=== PATIENT | female | born 1965 | race Caucasian/White ===

== ENCOUNTER 2017-02-20 02:25 | Inpatient (IN) ==
[~2017-02-20 02:25] MED LIST: NARCAN ONE; ZOFRAN ONE
[2017-02-20] MEDS ORDERED: ZOFRAN IV ONE (02:30)
[2017-02-20] MEDS ORDERED: NARCAN IV ONE (02:30)
[2017-02-20 02:48] LABS: MANUAL DIFF NEEDED? NO
[2017-02-20 02:48] LABS: URINE CULTURE PL NEEDED? NO
[2017-02-20 03:02] LABS: UR AMPHETAMINES QUAL NONE DETECTED (NONE DETECT)
[2017-02-20 03:03] LABS: UR BARBITUATES QUAL NONE DETECTED (NONE DETECT); UR BENZODIAZEPIN QUAL PRESUMPTIVE POSITIVE (NONE DETECT); UR CANNABINOIDS QUAL NONE DETECTED (NONE DETECT); UR COCAINE QUAL NONE DETECTED (NONE DETECT); UR MDMA QUAL NONE DETECTED (NONE DETECT); UR METHADONE QUAL NONE DETECTED (NONE DETECT); UR METHAMPHETAMINE QUAL NONE DETECTED (NONE DETECT); UR OPIATES QUAL PRESUMPTIVE POSITIVE (NONE DETECT); UR OXYCODONE QUAL NONE DETECTED (NONE DETECT); UR PCP QUAL NONE DETECTED (NONE DETECT); UR TCA QUAL NONE DETECTED (NONE DETECT)
[2017-02-20 03:05] LABS: BILIRUBIN URINE NEGATIVE (NEGATIVE); BLOOD URINE NEGATIVE (NEGATIVE); CLARITY CLEAR (CLEAR); COLOR YELLOW; GLUCOSE URINE NEGATIVE (NEGATIVE); LEUKOCYTES URINE NEGATIVE (NEGATIVE); NITRITE URINE NEGATIVE (NEGATIVE); PROTEIN URINE TRACE mg/dL (NEGATIVE); URINE EPITHELIAL CELLS <10 /HPF (<10); URINE RBC <10 /HPF (<10); URINE SOURCE CATH; URINE WBC <10 /HPF (<10); UROBILINOGEN URINE NORMAL
[2017-02-20 03:09] LABS: BASO% 0.1 % (0.0-0.8); EOS# 0.01 X1000 (0.0-0.7); EOS% 0.1 % (0.0-10.0); HEMOGLOBIN 12.2 g/dL (12.0-16.0); IMM GRAN# 0.02 X1000 (0.0-0.04); IMM GRAN% 0.2 % (0.0-0.5); LYMPH# 0.99 X1000 (1.2-3.4); LYMPH% 10.6 % (20.5-51.1); MCH 34.5 PG (27-31); MCV 104.5 FL (81-99); MONO# 0.94 X1000 (0.11-0.59); MPV 11.8 FL (7.4-10.4); PLT 200 X1000 (130-400); RBC 3.54 XMIL (4.2-5.4)
[2017-02-20 03:11] LABS: ALBUMIN 4.2 g/dL (3.5-5.0); CALCIUM 8.8 mg/dL (8.8-10.2); POTASSIUM 4.8 mmol/L (3.5-5.1); TOTAL BILIRUBIN 0.5 mg/dL (0.20-1.00); TOTAL PROTEIN 7.5 g/dL (6.3-8.3)
--- NOTE | 2017-02-20 03:18 | EKG Report ---
Test Performed on : 02/20/2017 02:24:34 AM Test Reason : ams Blood Pressure : / mmHG Vent. Rate : 099 BPM Atrial Rate : 099 BPM P-R Int : 136 ms QRS Dur : 086 ms QT Int : 370 ms P-R-T Axes : 027 -03 021 degrees QTc Int : 474 ms Normal sinus rhythm. Inferior infarct , age undetermined Abnormal ECG No previous ECGs available Unconfirmed Result
[2017-02-20] MEDS ORDERED: NS 1,000 ML IV ONE ×2 (03:22→03:27)
[2017-02-20] MEDS ORDERED: ZOFRAN IV PRN ×2 (03:27→07:13)
--- NOTE | 2017-02-20 03:27 | PROVIDER DOCUMENTATION ---
This chart was entered by Celeste Durham Scribe, acting as scribe for Clyde Mayo MD. HPI-Critical Care - General Stated Complaint: unresponsive Time Seen by Provider: 02/20/17 02:25 Patient arrived via EMS?: Yes Source: EMS Unable to obtain history due to:: altered (unresponsive on arrival) Allergies/Adverse Reactions: Allergies Allergy/AdvReac Type Severity Reaction Status Date / Time No Known Allergies Allergy Verified 12/29/16 22:53 Home Medications: Home Medication List Medication Instructions Recorded Confirmed Last Taken Type NK [No Home Medications] 02/20/17 02/20/17 Unknown History - History of Present Illness-Critical Care Nature of Presenting Problem: 51 Y/O F presents to ED with unresponsive. EMS states that daughter stated that last time was awake was yesterday. Daughter called 911, apparently EMS states that gloria came home to mother like this and that she other people were home with her all day and no one called 911. EMS states severe rhales, and pt broke foot yesterday. Hx of bronchial pneumonia. Pt arrived with vomit down airway on arrival. Initial O2 80 Location of Pain/Injury: reports: generalized Severity in ED: reports: severe Onset/Duration: reports: this morning EMS Initial Findings:: unresponsive EMS Initial HR: 97 EMS Initial BP: 130/115 Pre-hospital Treatment: Initiated oxygen Loss of Consciousness: no loss of consciousness Nitro Today/Relief: no nitro taken today Aspirin Treatment Today: no aspirin today Review of Systems - Adult - REVIEW OF SYSTEMS - ADULT ROS:: unobtainable per condition (unresponsive on arrival) Constitutional: denies: chills, fever Eyes: reports: no symptoms reported Ears, Nose, Mouth & Throat: reports: no symptoms reported Cardiovascular: reports: no symptoms reported Respiratory: reports: no symptoms reported Gastrointestinal: reports: no symptoms reported Genitourinary: reports: no symptoms reported Musculoskeletal: reports: no symptoms reported Integumentary: reports: no symptoms reported Neurological: reports: no symptoms reported Psychiatric: reports: no symptoms reported Endocrine: reports: no symptoms reported Hematologic/Lymphatic: reports: no symptoms reported Allergic/Immunologic: reports: no symptoms reported All Other Systems: Reviewed and Negative Past History - Adult - PAST MEDICAL HISTORY-ADULT Review of Records: reports: Old Records Reviewed, Nursing Assessment Review, Medications Reviewed, Social history reviewed & non-contributory. Cardiovascular: reports: CHF, HTN - IMMUNIZATION STATUS Childhood Immunizations: See Nurse Assessment Flu Vaccine: See Nurse Assessment Physical Exam-General - CONSTITUTIONAL General Appearance: severe distress. negative: appears well, alert - EYES Eyes: other (small pinpoint pupils). negative: PERRL/EOMI - RESPIRATORY Respiratory: other (coarse breathe sounds, open airway). negative: lungs clear , normal breath sounds - SKIN Integumentary: normal color, normal turgor Progress - PLAN OF CARE/RESULTS Progress/Plan/Lab Results: Vital Signs - 8 hr 02/20/17 02:25 02/20/17 02:26 Temperature 99.0 F Pulse Rate 102 H Respiratory Rate 20 Blood Pressure 157/94 O2 Sat by Pulse Oximetry 95 96 Laboratory Results - last 24 hr 02/20/17 02/20/17 02/20/17 02:25 02:25 02:25 WBC 9.37 RBC 3.54 L Hgb 12.2 Hct 37.0 MCV 104.5 H MCH 34.5 H MCHC 33.0 RDW Std Deviation 14.1 Plt Count 200 MPV 11.8 H Immature Gran % (Auto) 0.2 Neut % (Auto) 79.0 H Lymph % (Auto) 10.6 L Ector % (Auto) 10.0 H Eos % (Auto) 0.1 Baso % (Auto) 0.1 Immature Gran # (Auto) 0.02 Neut # (Auto) 7.40 H Lymph # (Auto) 0.99 L Ector # (Auto) 0.94 H Eos # (Auto) 0.01 Baso # (Auto) 0.01 Sodium 143 Potassium 4.8 Chloride 103 Carbon Dioxide 23 L Anion Gap 18 BUN 43 H Creatinine 2.0 H Estimated GFR/1.73 m2 26 BUN/Creatinine Ratio 22 Glucose 110 H Calculated Osmolality 296 Calcium 8.8 Magnesium Total Bilirubin 0.50 AST 30 ALT 17 Alkaline Phosphatase 80 Ammonia 20 Total Protein 7.5 Albumin 4.2 Globulin 3.0 Albumin/Globulin Ratio 1.0 TSH Urine Source Urine Color Urine Clarity Urine pH Ur Specific [place] Urine Protein Urine Ketones Urine Blood Urine Nitrite Urine Bilirubin Urine Urobilinogen Urine Microscopic RBC Urine WBC Urine Microscopic WBC Ur Epithelial Cells Urine Bacteria Urine Glucose Urine Test Salicylates Urine Opiates Screen Ur Oxycodone Screen Urine Methadone Screen Acetaminophen Ur Barbituates Screen Ur Tricyclics Screen Ur Phencyclidine Scrn Ur Amphetamines Screen U Methamphetamines Scrn Urine MDMA Screen U Benzodiazepines Scrn Urine Cocaine Screen U Cannabinoids Screen Plasma/Serum Ethyl Alc 02/20/17 02/20/17 02/20/17 02:25 02:25 02:25 WBC RBC Hgb Hct MCV MCH MCHC RDW Std Deviation Plt Count MPV Immature Gran % (Auto) Neut % (Auto) Lymph % (Auto) Ector % (Auto) Eos % (Auto) Baso % (Auto) Immature Gran # (Auto) Neut # (Auto) Lymph # (Auto) Ector # (Auto) Eos # (Auto) Baso # (Auto) Sodium Potassium Chloride Carbon Dioxide Anion Gap BUN Creatinine Estimated GFR/1.73 m2 BUN/Creatinine Ratio Glucose Calculated Osmolality Calcium Magnesium 2.6 Total Bilirubin AST ALT Alkaline Phosphatase Ammonia Total Protein Albumin Globulin Albumin/Globulin Ratio TSH 0.79 Urine Source Urine Color Urine Clarity Urine pH Ur Specific [place] Urine Protein Urine Ketones Urine Blood Urine Nitrite Urine Bilirubin Urine Urobilinogen Urine Microscopic RBC Urine WBC Urine Microscopic WBC Ur Epithelial Cells Urine Bacteria Urine Glucose Urine Test Salicylates Urine Opiates Screen Ur Oxycodone Screen Urine Methadone Screen Acetaminophen Ur Barbituates Screen Ur Tricyclics Screen Ur Phencyclidine Scrn Ur Amphetamines Screen U Methamphetamines Scrn Urine MDMA Screen U Benzodiazepines Scrn Urine Cocaine Screen U Cannabinoids Screen Plasma/Serum Ethyl Alc 02/20/17 02/20/17 02/20/17 02:25 02:25 02:30 WBC RBC Hgb Hct MCV MCH MCHC RDW Std Deviation Plt Count MPV Immature Gran % (Auto) Neut % (Auto) Lymph % (Auto) Ector % (Auto) Eos % (Auto) Baso % (Auto) Immature Gran # (Auto) Neut # (Auto) Lymph # (Auto) Ector # (Auto) Eos # (Auto) Baso # (Auto) Sodium Potassium Chloride Carbon Dioxide Anion Gap BUN Creatinine Estimated GFR/1.73 m2 BUN/Creatinine Ratio Glucose Calculated Osmolality Calcium Magnesium Total Bilirubin AST ALT Alkaline Phosphatase Ammonia Total Protein Albumin Globulin Albumin/Globulin Ratio TSH Urine Source CATH Urine Color YELLOW Urine Clarity CLEAR Urine pH 5.0 Ur Specific [place] 1.020 Urine Protein TRACE A Urine Ketones NEGATIVE Urine Blood NEGATIVE Urine Nitrite NEGATIVE Urine Bilirubin NEGATIVE Urine Urobilinogen NORMAL Urine Microscopic RBC <10 Urine WBC NEGATIVE Urine Microscopic WBC <10 Ur Epithelial Cells <10 Urine Bacteria 1+ Urine Glucose NEGATIVE Urine Test Salicylates < 3.00 L Urine Opiates Screen Ur Oxycodone Screen Urine Methadone Screen Acetaminophen < 1.2 L Ur Barbituates Screen Ur Tricyclics Screen Ur Phencyclidine Scrn Ur Amphetamines Screen U Methamphetamines Scrn Urine MDMA Screen U Benzodiazepines Scrn Urine Cocaine Screen U Cannabinoids Screen Plasma/Serum Ethyl Alc 02/20/17 02/20/17 02:30 02:30 WBC RBC Hgb Hct MCV MCH MCHC RDW Std Deviation Plt Count MPV Immature Gran % (Auto) Neut % (Auto) Lymph % (Auto) Ector % (Auto) Eos % (Auto) Baso % (Auto) Immature Gran # (Auto) Neut # (Auto) Lymph # (Auto) Ector # (Auto) Eos # (Auto) Baso # (Auto) Sodium Potassium Chloride Carbon Dioxide Anion Gap BUN Creatinine Estimated GFR/1.73 m2 BUN/Creatinine Ratio Glucose Calculated Osmolality Calcium Magnesium Total Bilirubin AST ALT Alkaline Phosphatase Ammonia Total Protein Albumin Globulin Albumin/Globulin Ratio TSH Urine Source Urine Color Urine Clarity Urine pH Ur Specific [place] Urine Protein Urine Ketones Urine Blood Urine Nitrite Urine Bilirubin Urine Urobilinogen Urine Microscopic RBC Urine WBC Urine Microscopic WBC Ur Epithelial Cells Urine Bacteria Urine Glucose Urine Test NEGATIVE Salicylates Urine Opiates Screen PRESUMPTIVE POSITIVE A Ur Oxycodone Screen NONE DETECTED Urine Methadone Screen NONE DETECTED Acetaminophen Ur Barbituates Screen NONE DETECTED Ur Tricyclics Screen NONE DETECTED Ur Phencyclidine Scrn NONE DETECTED Ur Amphetamines Screen NONE DETECTED U Methamphetamines Scrn NONE DETECTED Urine MDMA Screen NONE DETECTED U Benzodiazepines Scrn PRESUMPTIVE POSITIVE A Urine Cocaine Screen NONE DETECTED U Cannabinoids Screen NONE DETECTED Plasma/Serum Ethyl Alc Orders Category Date Time Status CHEST-PORTABLE [RAD] Stat Exams 02/20/17 02:30 Taken HEAD W/O CONTRAST [CT] Stat Exams 02/20/17 02:36 Taken ACETAMINOPHEN [TDM] Stat Lab 02/20/17 02:25 Completed ALCOHOL BLOOD Stat Lab 02/20/17 02:25 Completed AMMONIA [CHEM] Stat Lab 02/20/17 02:25 Completed CBC WITH ELECTRONIC DIFF [HEME] Stat Lab 02/20/17 02:25 Completed CMP [COMPREHENSIVE METABOLIC PANEL] [CHEM] Stat Lab 02/20/17 02:25 Completed MAGNESIUM [CHEM] Stat Lab 02/20/17 02:25 Completed TEST-URINE [PREG] Stat Lab 02/20/17 02:30 Completed SALICYLATES [TDM] Stat Lab 02/20/17 02:25 Completed TSH Stat Lab 02/20/17 02:25 Completed UDS [URINE DRUG SCREEN PL] Stat Lab 02/20/17 02:30 Completed ua [URINALYSIS PL W/POSS RFLX CULT] [URINALYSIS] Stat Lab 02/20/17 02:30 Completed 0.9% Sodium Chloride Inj [Ns] 1,000 ml Med 02/20/17 03:22 Active IV 999 mls/hr Naloxone [Narcan] Med 02/20/17 02:30 Discontinued 2 mg IV NOW ONE Ondansetron [Zofran] Med 02/20/17 02:30 Discontinued 8 mg IV NOW ONE EKG [EKG] Stat Ther 02/20/17 02:32 Draft Pt is not fully alert but does respond to painful stimulation Result Diagrams: 02/20/17 02:25 02/20/17 02:25 - EKG 1 Time of EKG reading by physician:: 02:24 EKG Read and Signed by:: Clyde Mayo EKG Interpretation (*Must complete 3 of following elements*): Normal Rate: 99 Rhythm: NSR Comments: Abnormal ECG, Inferior Infract, age undetermined - XRAY 1 XRAY Study: Chest Impression: Abnormal (cardiomegaly, olr right clavicle fx, ? early RLL infiltrate) - CT/MRI 1 CT Study: Head Impression: Normal Departure - Departure Date of Disposition Decision: 02/20/17 Time of Disposition Decision: 03:26 DIAGNOSIS: Aspiration pneumonitis Opiate overdose Qualifiers: Encounter type: initial encounter Injury intent: undetermined intent Qualified Code(s): T40.604A - Poisoning by unspecified narcotics, undetermined, initial encounter Disposition: ADMITTED INPATIENT 09 Certified Medical Emergency: Emergent Condition: Fair Referrals and Follow-Ups: None,PCP [Primary Care Provider] - - Critical Care Note This patient required my direct & personal management of CC.: No This chart was documented by the indicated scribe, (Celeste Durham Scribe) and accurately reflects the services I performed and decisions made by me, Clyde Mayo MD, as attested by the provider's signature.
--- NOTE | 2017-02-20 06:08 | Diag Imaging Result Doc PS360 ---
EXAM: CHEST-PORTABLE HISTORY: sob TECHNIQUE: AP chest COMPARISON: None. FINDINGS: The lungs are well expanded. Heart is not enlarged. The vessels are not distended. No consolidation. No pleural effusions identified. Old injury to the right clavicle. IMPRESSION: Negative chest. Electronically signed by Sg Vila 02/20/2017 6:05 AM
--- NOTE | 2017-02-20 06:23 | Diag Imaging Result Doc PS360 ---
EXAM: HEAD W/O CONTRAST HISTORY: ams TECHNIQUE: Dose reduction protocol COMPARISON: None. FINDINGS: No parenchymal hemorrhage. No epidural or subdural hematoma. No subarachnoid hemorrhage. No mass identified on this noncontrasted exam. No hydrocephalus. No sinus opacification. IMPRESSION: No hemorrhage. Negative brain CT without contrast. A preliminary report was given at 3:34 AM. Electronically signed by Sg Vila 02/20/2017 6:21 AM
[2017-02-20] MEDS: DUONEB (A & A) INH PRN ×2 (07:59→11:43)
[2017-02-20] MEDS: CLINDAMYCIN 900 MG in NS 50 ML IV SCH ×3 (08:40→23:46)
[2017-02-20] MEDS: ROCEPHIN 1 GM/NS 1 GM/50 ML IVPB IV SCH (08:46)
--- NOTE | 2017-02-20 08:50 | Diag Imaging Result Doc PS360 ---
EXAM: ANKLE COMPLETE RIGHT HISTORY: ? fracture TECHNIQUE: Three views COMPARISON: None. FINDINGS: Metallic clips from an [place] bandage obscure bony and soft tissue detail. On the oblique view there is lucency involving the fibula above the ankle mortise suspicious for nondisplaced fracture. There is also a nondisplaced fracture involving the distal fibula which appears chronic and ununited. The ankle mortise is intact. There is a small calcaneal spur. IMPRESSION: Suspect acute nondisplaced fracture distal fibula above the ankle mortise. Old ununited distal fibular fracture. Electronically signed by Jina Dobbins 02/20/2017 8:48 AM
[2017-02-20] MEDS: DUONEB (A & A) INH SCH ×4 (11:43→22:55)
[2017-02-20] MEDS ORDERED: DUONEB (A & A) INH PRN (12:08)
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
[2017-02-20] MEDS: NORCO-5 PO PRN (18:28)
[2017-02-20] MEDS ORDERED: TYLENOL PO ONE (19:56)
[2017-02-21] MEDS: NORCO-5 PO PRN (01:52)
[2017-02-21] MEDS: DUONEB (A & A) INH SCH ×3 (02:35→12:12)
--- NOTE | 2017-02-21 04:34 | CONSULTATION ---
DATE OF CONSULTATION: 02/20/2017 REASON FOR CONSULTATION: A nondisplaced distal fibular fracture of the right ankle. HISTORY OF PRESENT ILLNESS: This is a 51-year-old female, who presented to the emergency room via EMS after she was found unresponsive by her daughter. She apparently fell early Saturday morning and presented to the [facility] ER where they placed her in a removable boot and told to follow up outpatient with orthopedic. She has been admitted to the hospital now for a likely opiate overdose as well as aspiration pneumonia. We have been asked to see her to follow this right ankle fracture. PAST MEDICAL HISTORY: 1. Depression. 2. Chronic pain. PAST SURGICAL HISTORY: Unable to obtain at present. PRESENT SOCIAL HISTORY: She is a smoker. She does drink alcohol and use illicit drugs. ALLERGIES: No known drug allergies. HOME MEDICATIONS: Refer to list in chart. REVIEW OF SYSTEMS: A 12-point review of systems has been obtained and is negative except as what is mentioned above and in the physical exam. PHYSICAL EXAMINATION: General: This is a 51-year-old female, who is currently lying in the bed in no acute distress. Vital Signs: Temperature 99.7 degrees, pulse 104, blood pressure 132/69, O2 saturation is 99% on a 40% Ventimask. HEENT: Head is normocephalic, atraumatic. Pupils are equal and reactive to light. Neck: Trachea is midline. Cardiovascular: Regular rate and rhythm. Pulmonary: Respirations are even and unlabored. Extremities: Right lower extremity has significant bruising to the lateral aspect of the ankle. She has some edema medially and laterally on the ankle as well as the midfoot. She has tenderness to palpation throughout the ankle and foot. She has a good pedal pulse. She has good sensation to her toes. She denies numbness or tingling. IMAGING: Radiograph of the right ankle shows a nondisplaced fracture of the distal fibula. The joint spacing looks good. The syndesmosis does not appear widened. Dr. Souza personally reviewed and interpreted these images. ASSESSMENT: Nondisplaced distal fibular fracture. PLAN: Ms. Matt elizabeth is currently missing. Apparently the family has it and is unable to get it back up here. For now, I will place her in a posterior splint, as she is having a lot of pain. We will plan to place her in a removable short-leg walking boot. As far as pain medication goes, because of her recent overdose, I will leave the pain medication up to the medical team. We will have Ms Robert follow up in the [facility] as an outpatient whenever she is discharged from the hospital. Dictated by JOSE ROBERTO Pearl for Galdino Souza MD cc: JOSE ROBERTO Pearl MD Gregory S. Cheatham, MD MTDD
[2017-02-21 06:20] LABS: HEMATOCRIT 32.1 % (37.0-47.0); HEMOGLOBIN 10.4 g/dL (12.0-16.0); MCH 33.9 PG (27-31); MCHC 32.4 g/dL (33-37); MCV 104.6 FL (81-99); MPV 11.8 FL (7.4-10.4); RBC 3.07 XMIL (4.2-5.4)
[2017-02-21 06:53] LABS: AGAP 16; ALBUMIN 3.4 g/dL (3.5-5.0); ALKALINE PHOSPHATASE 102 U/L (32-104); BUN 10 mg/dL (8-22); CALCIUM 8.8 mg/dL (8.8-10.2); CHLORIDE 102 mmol/L (98-107); COSMO 276; GOT 25 U/L (10-30); GPT 12 U/L (10-36); POTASSIUM 4.3 mmol/L (3.5-5.1); SODIUM 138 mmol/L (136-145); TCO2 20 mmol/L (25-35); TOTAL PROTEIN 6.4 g/dL (6.3-8.3)
[2017-02-21] MEDS: CLINDAMYCIN 900 MG in NS 50 ML IV SCH (08:05)
[2017-02-21] MEDS: ROCEPHIN 1 GM/NS 1 GM/50 ML IVPB IV SCH (08:05)
[2017-02-21] MEDS ORDERED: LOPRESSOR PO SCH (09:00)
[2017-02-21] MEDS ORDERED: CATAPRES PO SCH (09:00)
[2017-02-21] MEDS ORDERED: LIBRIUM PO SCH ×2 (09:00)
[2017-02-21] MEDS ORDERED: ZANTAC PO SCH (09:00)
[2017-02-21] MEDS ORDERED: NORVASC PO SCH (09:00)
[2017-02-21] MEDS ORDERED: PRINIVIL PO SCH (09:00)
[2017-02-21] MEDS ORDERED: CELEXA PO SCH (09:00)
[2017-02-21] MEDS ORDERED: ASPIRIN EC PO SCH (09:00)
--- NOTE | 2017-02-21 09:01 | PROGRESS NOTE ---
DATE: 02/21/2017 SUBJECTIVE: Patient without new complaints. She is lying in the bed quietly and flat. She is more awake and alert. OBJECTIVE: Vital Signs: On physical, temp 99, pulse 111 respiratory 22, BP 150/78, satting 96% on 2 L. General: Patient is awake. She easily awakened, but she is sleeping most of the time. She does have pain in her left ankle from her previous fracture. HEENT: Normocephalic, atraumatic. Neck: Supple. CV: Regular rate. Chest: Relatively clear. Abdomen: Soft. Extremities: Moves all extremities. Neurologic: No changes. ASSESSMENT: 1. Opiate overdose. Patient continues to improve. 2. Aspiration pneumonia. We will continue antibiotics. 3. Supraventricular tachycardia. 4. Chronic pain. 5. Known history of alcoholism, although no current signs of withdrawal. We will continue on Librium. 6. Right distal fibular nondisplaced fracture. Will continue bracing. 7. Chronic kidney disease. PLAN: We will continue to follow patient. Will keep in the ICU a little while longer. We will continue current orders. TIME SPENT: 34 minutes was spent in total care. cc: Jimmy Weathers MD
[2017-02-21 15:23] VITALS: BP 135/83
--- NOTE | 2017-02-22 20:11 | DISCHARGE SUMMARY ---
ADMISSION DATE: 02/20/2017 DISCHARGE DATE: 02/21/2017 PATIENT LEFT AMA. DIAGNOSES: 1. Opiate overdose. 2. Aspiration pneumonia. 3. Supraventricular tachycardia. 4. Chronic pain. 5. Known history of alcoholism. 6. Right distal fibular nondisplaced fracture. 7. Chronic kidney disease. DIAGNOSTICS: 02/20/2017 CT of the head: No hemorrhage, negative brain CT without contrast. 02/20/2017 right ankle x-ray: Suspect acute nondisplaced fracture at the distal fibula above the ankle mortise, old ununited distal fibular fracture. CONSULTATIONS: Galdino Souza MD. MICROBIOLOGY: Sputum culture revealed no growth. HOSPITAL COURSE: Ms. Robert presented to the emergency room via EMS after being found lying in bed unresponsive by her daughter. Reportedly she had been to the emergency room within 36 hours prior to this event, diagnosed with a right ankle fracture and given pain medication. When the daughter found her, she had only 2 pills left in the bottle. We are unsure of how many pills were actually in the bottle. On arrival to the emergency room she was unresponsive and vomitus was noted in her airway per the ER chart but she did have an oxygen saturation of 95-96%. She was given IV hydration as well as Narcan and she did begin to wake up. She did receive antibiotic coverage of Rocephin and clindamycin. Urine drug screen was positive for benzodiazepines and opiates. Salicylate level was less than 3 and acetaminophen level was 1.2 with a blood alcohol of 0. Her white count was 9.3, she had a creatinine of 2. We did trend her labs and this morning her white count was still 9. Creatinine had thankfully decreased to 0.7. Vital signs were stable. She was maintaining oxygen saturations of 97 to 99% on 2 L nasal cannula. We did consult Orthopedics as she reportedly had a right distal fibular fracture. We were unsure of any mechanism for which she was supposed to be stabilizing with a boot. The boot was not on when she got to the emergency room. The daughter stated it was at home so it is unknown how long she wore it. We did re-x-ray her leg to assure any further damage and consult Orthopedics. This afternoon the patient's daughter came in and the patient decided that she was going to leave the hospital. She stated she wanted to sign "whatever papers" she needed to sign to go. She was instructed by myself as well as her nurse that she had aspirated, she did have pneumonia and that this would increase and it could actually lead to being very seriously ill or . She stated that she did not care. She demanded that either her IVs and Parry be removed by the staff or she would remove them herself. She did refuse any antibiotics stating she just wanted to get out of here. She did leave ambulatory but she did have her walking boot on. She was instructed to return to the emergency room or see her primary care physician if she develops a temperature, cough, chills, shortness of breath, chest pain, nausea, vomiting, diarrhea, constipation or any other questions or concerns that she may have. Dictated by JOSE ROBERTO Torrez for Jimmy Weathers MD cc: JOSE ROBERTO Torrez MD
== END 2017-02-21 15:52 | disposition left against medical advice (07) ==
LOC: P.ED 02:25 → SUATTDRO 03:54 → P.ICU 03:54 → P.MEDSURG 10:24 → P.ICU 10:32
PROVIDERS: ADMIT Family Medicine; ATTEND Family Medicine